=== PATIENT | female | born 1930 | race Caucasian/White ===

== ENCOUNTER 2017-03-04 10:29 | Inpatient (IN) | payer OTHER, BC ==
[~2017-03-04] VITALS: Ht 162.6 cm; Wt 59.9 kg
[2017-03-04] VITALS (8 sets, daily range): BP systolic 120–221; BP diastolic 47–96
--- NOTE | ~2017-03-04 | H ---
[facility] [place] [address] HISTORY AND PHYSICAL Name: TERESO BELTRAN Room #: 351-P [facility] IN M.R.#: [id number] Admission: 03/04/17 Attend Phys: Tyson Payne MD Discharge: Date of : [birth year] Report #: [id number] THIS REPORT FOR: //name// CC: Tyson Payne DATE OF SERVICE: 03/04/2017 CHIEF COMPLAINT: Left leg weakness. HISTORY OF PRESENT ILLNESS: The patient is an 86-year-old female sent to the Emergency Room with left leg weakness. She has a long-standing history of hypertension, diffuse peripheral vascular disease due to atherosclerosis and a prior stroke, who woke this morning with left leg weakness. She got up to go to the bathroom and felt her left leg does buckle underneath her and she was unable to move her left leg. Her grandson was present, was able to prevent her from full-blown fall to the floor. She presented to the ER with elevated blood pressures of 200/80 and weakness of the left leg. She received IV hydralazine and underwent a CT scan of the brain. By the time she returned, she had normal movement and sensation back in the left leg, according to the staff. These symptoms started about 4 a.m. and she presented around 10:30. PAST MEDICAL HISTORY: Cerebrovascular accident with left hemiparesis and mild dysarthria approximately 3 years ago, hypertension, peripheral artery disease. She has had an aortic graft placement in 1972, I believe she has had fem-pop bypass, carotid endarterectomy. She also has a history of CLL. PAST SURGICAL HISTORY: As above. FAMILY HISTORY: Noncontributory. SOCIAL HISTORY: She lives with family at home. No chronic alcohol or tobacco use. ALLERGIES: IODINE. MEDICATIONS: Felodipine 5 mg, Benicar 20 mg, atenolol 100 mg, Plavix 75 mg, Ambien 5 mg, Lipitor 40 mg, aspirin 81 mg. REVIEW OF SYSTEMS: She denies headache, chest pain, shortness of breath, abdominal pain, nausea, vomiting, diarrhea, constipation, dysuria, syncope. OBJECTIVE: VITAL SIGNS: Pulse 60, respirations 12, blood pressure 168/51, O2 sat 100% on room air. GENERAL: She is awake and alert, in no distress. HEAD AND NECK: Unremarkable. [address] [address] HISTORY AND PHYSICAL Name: TERESO BELTRAN Room #: 351-P [facility] IN [facility].#: [id number] Admission: 03/04/17 Attend Phys: Tyson Payne MD Discharge: Date of : [birth year] Report #: [id number] LUNGS: Clear. HEART: Regular. ABDOMEN: Soft, normoactive bowel sounds. EXTREMITIES: No edema. NEUROLOGIC: Cranial nerves intact. Speech is fluent. She recognizes me and knows her surroundings. Upper extremity strength intact, right leg strength intact. Left leg, she has some slight weakness with hip and knee flexion, but she has normal movement at all 3 joints, fine touch sensation is intact. ASSESSMENT: 1. Transient ischemic attack. 2. Cerebrovascular disease. 3. Atherosclerotic vascular disease. 4. Chronic lymphocytic leukemia. 5. Hypertensive urgency. PLAN: She is admitted to telemetry with adjustment of blood pressure medication. MRI is obtained to rule out an acute stroke, but with resolution of her symptoms, this may be more TIA related to elevated blood pressures. Medication adjustments will be made while we have her under monitoring. She is taking Plavix and aspirin, we will use those for now and add Lovenox for DVT prophylaxis. <ELECTRONICALLY SIGNED> By: Tyson Payne MD 03/05/17 0843 [id number] 1225 Tyson Payne MD /nt
--- NOTE | ~2017-03-04 | EKG ---
[address] [address] ELECTROCARDIOGRAM REPORT Name: ANDIAURORACHRIS SinghTERESO A Room #: 351-P ADM IN .R.#: [id number] Admission: 03/04/17 Attend Phys: Tyson Payne MD Discharge: Date of : [birth year] Report #: [id number] THIS REPORT FOR: //name// [facility] ED Test Date: 2017-03-04 Test Time: 10:51:28 Pat Name: TERESO BELTRAN Department: Room: [facility] Gender: F Clinical Services Director: ana : 1930 Requested By: Yessy Yanez Order Number: [id number] MD: Claude Steinberg Measurements Intervals Elida Rate: 55 P: -13 SC: 159 QRS: 38 QRSD: 83 T: 78 QT: 427 QTc: 409 Interpretive Statements Sinus rhythm Probable LVH with secondary repol abnrm Compared to ECG 05/08/2016 18:16:51 Atrial premature complex(es) no longer present Electronically Signed On 03-04-2017 21:10:24 [employer] by Claude Steinberg [email or web address] <ELECTRONICALLY SIGNED> By: Claude Steinberg MD 03/04/17 2110 105 1051 Claude Steinberg MD /EPI
--- NOTE | ~2017-03-04 | HC ---
[facility] [place] [address] CONSULTATION Name: TERESO BELTRAN Room #: 351-P [facility] IN ..#: [id number] Admission: 03/04/17 Attend Phys: Tyson Payne MD Discharge: 03/06/17 Date of : [birth year] Report #: [id number] THIS REPORT FOR: //name// CC: Tyson Payne DATE OF SERVICE: 03/05/2017 HISTORY OF PRESENT ILLNESS: The patient is an 86-year-old white female who was admitted with left-sided weakness primarily in the left lower extremity. She had problems with her left leg buckling. She was noted to be hypertensive upon admission, blood pressure 200/80. She notes a significant functional decline. CT of the brain was negative. MRI did not show any acute event. The patient has a prior history of a CVA back in 2014 lateral to the right mid ventricle and had a good recovery at that point in time. We are seeing her now in rehabilitation medicine consultation. PAST MEDICAL HISTORY: Includes the prior CVA in 2014. She has some left hemiparesis at that time. She did have some left lower extremity spasticity and was given some baclofen as well as Neurontin. She has a history of bilateral carotid stenosis, history of CLL, aortic stent, right common iliac stent, left renal artery stent. PAST SURGICAL HISTORY: As noted above. She had an aortic graft placed in 1972 and has had a fem-pop bypass and carotid endarterectomy. FAMILY HISTORY: Noncontributory. SOCIAL HISTORY: She lives in a house alone, tri-level. She has a walker on each level and has a stair rail that she uses. She continues to carry down her laundry and does her laundry in the basement. She has been ambulatory and be able to do all her own ADLs. She does have family that are closely involved. REVIEW OF SYSTEMS: Did not offer any current complaints of chest pain, shortness of breath or abdominal discomfort. Complains of the left-sided weakness and concern with give way of that left lower extremity. PHYSICAL EXAMINATION: GENERAL: She is a pleasant 86-year-old white female in no obvious distress. VITAL SIGNS: Last recorded temperature is 98.4, pulse 59, respirations 18, blood pressure 154/50. NEUROLOGIC: Facies appeared to be symmetric. EOMs are full. No obvious visual field neglect to confrontation. She is able to express herself quite well. She is right handed. Upper extremity, she has degenerative changes of both hands. Has some decreased coordination of that left upper extremity compared to the right with fine finger dexterity and [id number]. Strength is probably a grade 4/5 bilaterally. Lower extremity, she has some weakness of the left lower [address] [address] CONSULTATION Name: TERESO BELTRAN Room #: 351-P [facility] IN M.R.#: [id number] Admission: 03/04/17 Attend Phys: Tyson Payne MD Discharge: 03/06/17 Date of : 10/[birth year] Report #: [id number] extremity, hip and knee flexors 3+, knee extension is 3+, ankle dorsiflexion is 3+ to 4-. Right lower extremity strength is more of a grade 4 to 4-/5. Functionally, she does have deficits with transfers at a mod assist level. Sit to stand is mod assist. Gait was 4 steps mod assist front-wheeled walker. ASSESSMENT: An 86-year-old white female with the following problems: 1. Left-sided weakness/clinical evidence of a cerebrovascular accident. 2. Functional mobility and ADL deficits with decline from premorbid. 3. Prior history of an acute lacunar infarct lateral to the right ventricle back in 2014. 4. Hypertension with blood pressure 200/80 upon admission. 5. History of peripheral arterial disease with prior fem-pop and carotid endarterectomy. 6. Aortic graft replacement. 7. CLL. PLAN: The patient meets diagnostic criteria for an acute in-hospital inpatient rehabilitation stay. From a preadmission screening perspective: 1. Prior level of function is delineated above. 2. Expect level of improvement would be for her to again become modified independent with mobility and ADLs at the walker level as well as going up and down steps with a handrail. Would anticipate length of stay of probably at least 2 weeks, likely longer at this point in time. 3. Evaluation of the patient's risk for clinical complications. She does have the multiple medical comorbidities as noted above. She will need to be monitored with her hypertension, her significant peripheral vascular disease, her prior cerebrovascular accident. 4. Condition that caused the need for rehabilitation would be the left-sided weakness with clinical evidence of another cerebrovascular accident. 5. Treatments needed would include PT, OT and would have speech therapy evaluate. Would start out 1 hour per day each five days a week throughout the duration of the acute inpatient rehabilitation stay, but we may be able to wean off the speech therapy in favor of more PT and OT. 6. Anticipated discharge destination would be back home where she lives by herself. She will likely need more family assistance. 7. Anticipated post-discharge treatments would include home healthcare therapies. 8. The patient meets diagnostic criteria for an acute in-hospital inpatient rehabilitation stay. She meets medical necessity criteria and has the multiple medical comorbidities as noted above. She does have the tolerance for an acute rehab program and has appropriate discharge goals back to the home setting. <ELECTRONICALLY SIGNED> By: Tyson Johnson MD 03/10/17 1219 1157 1515 Tyson Johnson MD /[facility]
--- NOTE | ~2017-03-04 | D ---
[facility] [place] [address] DISCHARGE SUMMARY Name: TERESO BELTRAN Room #: 351-P [facility] IN ..#: [id number] Admission: 03/04/17 Attend Phys: Tyson Payne MD Discharge: 03/06/17 Date of : [birth year] Report #: [id number] THIS REPORT FOR: //name// CC: Tyson Payne FINAL DIAGNOSES: 1. Transient ischemic attack. 2. Hypertensive urgency. 3. Cerebrovascular disease. 4. Atherosclerosis. 5. Peripheral artery disease. 6. Chronic lymphocytic leukemia. HOSPITAL COURSE: The patient was admitted with acute left leg weakness. By the time, she had undergone CT and had hydralazine to lower her blood pressure, her symptoms were essentially resolved. She had an MRI, which showed no new stroke. She is still having some weakness and apraxic movements of her left leg and therefore, she was referred for rehab. Dr. Johnson consultation. Blood pressure was better with the addition of hydralazine and switching to Coreg. PHYSICAL EXAMINATION ON THE DAY OF DISCHARGE: GENERAL: She was awake and alert. Her exam was unremarkable including normal speech. VITAL SIGNS: Blood pressure was ranging 150/70-150/100. LUNGS: Clear. CARDIOVASCULAR: Regular heart sounds. ABDOMEN: Soft. Normal bowel sounds. EXTREMITIES: Showed no edema. NEUROLOGIC: She was showing normal strength 4/5 in the left leg. DISPOSITION: To be discharged to inpatient rehabilitation with diet and activity as tolerated, physical, occupational, and speech therapy, be followed by myself and Dr. Johnson. I signed her transfer medications and I will continue managing her blood pressure on acute rehab. <ELECTRONICALLY SIGNED> By: Tyson Payne MD 03/07/17 0904 1057 1555 Tyson Payne MD /nt
[~2017-03-04 10:29] MED LIST: AMBIEN 5 MG TABL5 M1 PO; AMLODIPINE BESY10 MG PO; ASPIRIN81 M2 PO; ATENOLOL 100MG100 MG PO; ATORVASTATIN CA40 MG PO; BENGAY GREASELE57 GM TOP; BISACODYL SUPP10 MG RECTAL; CLOPIDOGREL75 MG PO; COLACE100 MG PO; DIOVAN 80 MG TA80 M1 PO; FELODIPINE ER10 MG PO; FISH OIL 1,001000 M2 PO; GABAPENTIN 100100 MG PO; HYDRALAZINE 5050 MG PO; HYDRALAZINE IV PUSH; HYDROCODON-ACE1 EAC7 PO; LIORESAL 10 MG10 MG PO; MILK OF MA2400 MG/10 PO; MIRALAX17 GM PO; PAXIL10 MG; PRAVACHOL20 MG PO; SENNA8.6 MG PO; SERTRALINE HCL25 MG PO; TYLENOL325 MG PO; VITAMIN D2000 UNIT PO
[2017-03-04 10:55] LABS: HEMATOCRIT 37.4 % (37.0-47.0); HEMOGLOBIN 12.9 gm/dL (12.0-15.0); MCH 32.4 pg (26.0-34.0); MCHC 34.4 g/dL (28.0-37.0); MCV 94.2 fL (80.0-100.0); RBC 3.98 mil/uL (4.20-5.00); RDW 12.4 % (10.5-14.5); WBC 36.8 thou/uL (4.0-11.0)
[2017-03-04 10:58] LABS: MANUAL DIFF YES
[2017-03-04 11:00] LABS: PLATELET COUNT 179 thou/uL (150-400)
[2017-03-04 11:05] LABS: CALCIUM 9.4 mg/dL (8.5-10.1); POTASSIUM 3.9 mmol/L (3.5-5.1)
[2017-03-04] MEDS ORDERED: FELODIPINE 5 MG5 M1 PO (11:14)
[2017-03-04] MEDS ORDERED: BENICAR20 MG PO (11:14)
[2017-03-04 11:59] LABS: ABSOLUTE NEUTROPHILS 2.6 thou/uL (1.4-8.2); PLATELET ESTIMATE NORMAL; TOTAL CELL COUNT 100
[2017-03-05 07:22] VITALS: BP 164/56
[2017-03-05 11:16] VITALS: BP 154/50
[2017-03-05 16:02] VITALS: BP 183/61
[2017-03-05 20:00] VITALS: BP 160/47
[2017-03-06 08:07] VITALS: BP 148/112
[2017-03-06] MEDS ORDERED: CARVEDILOL12.5 MG PO (10:52)
[2017-03-06] MEDS ORDERED: ENOXAPARIN30 MG/0.1 SUBQ (10:52)
[2017-03-06] MEDS ORDERED: HYDRALAZINE 10M10 MG PO (10:52)
[2017-03-06] MEDS ORDERED: MIRALAX17 GM PO (10:53)
[2017-03-06] MEDS ORDERED: BENICAR20 MG PO (10:53)
[2017-03-06] MEDS ORDERED: ACETAMINOPHEN325 M1 PO (10:53)
[2017-03-06 11:29] VITALS: BP 147/50
[2017-03-06 11:39] VITALS: BP 147/50
== END 2017-03-06 14:07 | DRG 69 ==
LOC: ER 10:29 → 3W 11:29 → EROBS 11:29 → 3W 12:29
PROVIDERS: Emergency Medicine
DX: G45.9 Transient cerebral ischemic attack, unspecified (principal); C91.10 Chronic lymphocytic leukemia of B-cell type not having achieved remission; I16.1 Hypertensive emergency; M10.9 Gout, unspecified; L40.9 Psoriasis, unspecified; I10 Essential (primary) hypertension; I73.9 Peripheral vascular disease, unspecified; I70.90 Unspecified atherosclerosis; Z90.49 Acquired absence of other specified parts of digestive tract; Z91.041 Radiographic dye allergy status; Z87.891 Personal history of nicotine dependence
CPT/HCPCS: 10879

== ENCOUNTER 2017-03-06 11:50 | Inpatient (IN) | payer OTHER, BC ==
[~2017-03-06] VITALS: Ht 165.1 cm; Wt 59.3 kg
--- NOTE | ~2017-03-06 | H ---
[facility] [place] [address] HISTORY AND PHYSICAL Name: TERESO BELTRAN Room #: 505-P ADM IN M.R.#: [id number] Admission: 03/06/17 Attend Phys: Tyson Johnson MD Discharge: Date of : [birth year] Report #: [id number] THIS REPORT FOR: //name// CC: Tyson Johnson DATE OF SERVICE: 03/06/2017 HISTORY AND PHYSICAL AND POSTADMISSION PHYSICIAN EVALUATION HISTORY OF PRESENT ILLNESS: The patient is an 86-year-old white female originally admitted with left-sided weakness primarily the left lower extremity. She had problems with left knee buckling. She was noted to be hypertensive upon admission, blood pressure 200/80. She noted a significant functional decline. CT of the brain was negative and MRI did not show any acute event. The patient has a prior history of a CVA, dating back to 2014, lateral to the right mid ventricle and had a good recovery at that point in time. With her significant functional decline with the left-sided weakness, she has now been admitted for acute in-hospital inpatient rehabilitation. PAST MEDICAL HISTORY: Includes the prior CVA in 2014. She had some left hemiparesis at that time. She also had some left lower extremity spasticity and was given some baclofen as well as some Neurontin. She has history of bilateral carotid stenosis, CLL, aortic stent, right common iliac stent, and left renal artery stent. PAST SURGICAL HISTORY: Includes aortic graft placed in 1972 and she had a fem-pop bypass and carotid endarterectomy. FAMILY HISTORY: Noncontributory. SOCIAL HISTORY: Lives in a house alone, tri-level. She has a walker on each level and has a stair rail that she uses. She continued to carry down her laundry as her laundry is in the basement. She had been ambulatory and was able to do all her own ADLs. She has family that is closely involved. REVIEW OF SYSTEMS: Did not offer any current complaints of chest pain, shortness of breath, or abdominal discomfort. She has the left-sided weakness and continues to have some concern regarding giveway. PHYSICAL EXAMINATION: GENERAL: An 86-year-old white female in no obvious distress. VITAL SIGNS: Temperature 97.4, pulse 67, respirations 18, blood pressure 148/57. The patient is alert. HEENT: Appeared to be benign. NEUROLOGIC: Cranial nerves are grossly intact. No obvious visual field neglect [address] [address] HISTORY AND PHYSICAL Name: TERESO BELTRAN Room #: 505-P [facility] IN [facility]#: [id number] Admission: 03/06/17 Attend Phys: Tyson Johnson MD Discharge: Date of : [birth year] Report #: [id number] to confrontation. She can express herself quite well. She is right handed. CHEST: Sounded clear to auscultation. CARDIOVASCULAR: Regular rate and rhythm. ABDOMEN: Bowel sounds are positive, nontender. GENITOURINARY AND RECTAL: Deferred. EXTREMITIES: She has some decreased coordination of the left upper extremity compared to the right with fine finger dexterity with [id number]. Strength is grade 4/5 bilaterally. Lower extremities: She has some weakness of the left lower extremity, hip and knee flexors are still 3+, knee extension is 3+, ankle dorsiflexion is 3+ to 4-. Right lower extremity is a grade 4- to 4/5. She is needing assistance with functional mobility skills with transfers at a mod assist. Gait is min assist 150 feet, when last up with therapy. Lower body dressing is being further assessed. ASSESSMENT: 1. Left-sided weakness with clinical evidence of cerebrovascular accident. 2. Functional mobility and activities of daily living deficits with decline from premorbid. 3. Prior history of an acute lacunar infarct lateral to the right mid ventricle back in 2014. 4. Hypertension with elevated blood pressure upon admission. 5. History of peripheral arterial disease with prior fem-pop and carotid endarterectomy. 6. Aortic graft replacement. 7. Chronic lymphocytic leukemia. PLAN: The patient is admitted for acute in-hospital inpatient rehabilitation. From a postadmission physician evaluation perspective, there are no relevant changes since the preadmission screening. Please see the above review of prior and current medical and functional conditions and comorbidities. Please see the patient's previous and current functional status. As far as risk of complications, the patient has multiple medical comorbidities as noted above. The initial plan of care involves the interdisciplinary acute inpatient rehabilitation program with the goal of maximizing the patient's functional independence, so that she can hopefully return back to her prior living situation. Measurable functional goals would be for her to improve with her overall functional abilities so that she can achieve independence at a walker level. She used a walker at each level and has a stair rail at home. Prognosis is reasonably good with estimated length of stay probably at least 10 days to 2 weeks pending progress. Potential barriers would include her multiple medical comorbidities and decreased functional status. <ELECTRONICALLY SIGNED> By: Tyson Johnson MD 03/10/17 1219 0935 1030 Tyson Johnson MD /[facility]
--- NOTE | ~2017-03-06 | PLAN ---
[facility] [place] [address] REHAB UNIT PLAN OF CARE Name: TERESO BELTRAN Room #: 505-P [facility] IN ..#: [id number] Admission: 03/06/17 Attend Phys: Tyson Johnson MD Discharge: Date of : [birth year] Report #: [id number] THIS REPORT FOR: //name// CC: Tyson Johnson DATE OF SERVICE: 03/08/2017 PROGRESS NOTE/OVERALL PLAN OF CARE The patient was seen earlier. She was in no distress. Last recorded temperature 36.9, pulse 57, respirations 18, blood pressure 136/50. She has been using SCDs. She was noted to have refused her midnight Hydralazine and Ambien was given. She has been working in therapies with transfers, min assist. Gait min assist 200 feet with a front-wheeled walker. She has gone up and down 4 steps min assist. Occupational therapy is contact guard for lower body dressing. In speech therapy, she does have mild comprehensive deficits. She is on a regular diet with thin liquids. ASSESSMENT: 1. Left-sided weakness with clinical evidence of a cerebrovascular accident. 2. Functional mobility and ADL deficits with decline from premorbid. 3. Prior history of an acute lacunar infarct lateral to the right mid ventricle back in 2014. 4. Hypertension with elevated blood pressure upon admission. 5. History of peripheral arterial disease with prior fem-pop and carotid endarterectomy. 6. Aortic graft replacement. 7. Chronic lymphocytic leukemia. PLAN: The overall plan of care is based on the preadmission screen, post-admission physician evaluation and information garnered from therapy assessments. 1. Estimated length of stay is probably at least 10 days to 2 weeks. 2. Medical prognosis is reasonably good. 3. Anticipated interventions include the interdisciplinary acute inpatient rehabilitation program with the goal of maximizing her functional independence so she can return back to the home setting. The interdisciplinary rehabilitation team is involved. 4. Anticipated functional outcomes would be for the patient to achieve independence at a walker level as she was using before. Goal is for her to become independent with her mobility and ADLs as well as improvement in cognition. 5. Discharge destination would be back to her own house, which is a tri-level house. Premorbidly, she had been going up and down stairs with the stair rail. 6. Expected therapy by discipline includes PT, OT and speech, 1 hour per day [address] [address] REHAB UNIT PLAN OF CARE Name: TERESO BELTRAN [place] Room #: 505-P [facility] IN [facility]#: [id number] Admission: 03/06/17 Attend Phys: Tyson Johnson MD Discharge: Date of : [birth year] Report #: [id number] for a total of 3 hours per day, 5 days a week throughout the duration of the acute inpatient rehabilitation stay. <ELECTRONICALLY SIGNED> By: Tyson Johnson MD 03/10/17 1219 0929 1134 Tyson Johnson MD /[facility]
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
[~2017-03-06 11:50] MED LIST changes: +ACETAMINOPHEN325 M1 PO; +BENICAR20 MG PO; +CARVEDILOL12.5 MG PO; +ENOXAPARIN30 MG/0.1 SUBQ; +FELODIPINE 5 MG5 M1 PO; +HYDRALAZINE 10M10 MG PO
[2017-03-06 14:25] VITALS: BP 136/80
[2017-03-06 20:35] VITALS: BP 148/57
[2017-03-07 06:30] LABS: HEMATOCRIT 32.7 % (37.0-47.0); HEMOGLOBIN 11.3 gm/dL (12.0-15.0); MCH 32.6 pg (26.0-34.0); MCHC 34.6 g/dL (28.0-37.0); MCV 94.1 fL (80.0-100.0); RBC 3.48 mil/uL (4.20-5.00); RDW 12.6 % (10.5-14.5); WBC 21.6 thou/uL (4.0-11.0)
[2017-03-07 06:42] LABS: CALCIUM 8.8 mg/dL (8.5-10.1); CREATININE 0.9 mg/dL (0.6-1.0); POTASSIUM 4.1 mmol/L (3.5-5.1)
[2017-03-07 11:13] VITALS: BP 155/49
[2017-03-07 20:34] VITALS: BP 144/44
[2017-03-07 23:37] VITALS: BP 136/50
[2017-03-08 07:54] VITALS: BP 142/52
[2017-03-08 20:09] VITALS: BP 147/60
[2017-03-09 08:45] VITALS: BP 135/43
[2017-03-09 20:00] VITALS: BP 138/49
[2017-03-10 08:15] VITALS: BP 149/66
[2017-03-10 20:12] VITALS: BP 153/53
[2017-03-11 08:22] VITALS: BP 144/71
[2017-03-11 19:35] VITALS: BP 117/56
[2017-03-12] MEDS ORDERED: CARVEDILOL12.5 MG PO (12:00)
[2017-03-12] MEDS ORDERED: HYDRALAZINE 10M10 MG PO (12:00)
[2017-03-12] MEDS ORDERED: FELODIPINE 5 MG5 M1 PO (12:00)
[2017-03-12] MEDS ORDERED: BENICAR20 MG PO (12:01)
[2017-03-12 20:00] VITALS: BP 141/54
[2017-03-13 08:00] VITALS: BP 173/50
[2017-03-13] MEDS ORDERED: HYDRALAZINE 10M10 MG PO (10:22)
[2017-03-13] MEDS ORDERED: NORVASC10 MG PO (10:22)
[2017-03-13 11:46] VITALS: BP 152/68
== END 2017-03-13 13:05 | DRG 65 ==
PROVIDERS: Physical Medicine & Rehabilitation
DX: I63.9 Cerebral infarction, unspecified (principal); C91.10 Chronic lymphocytic leukemia of B-cell type not having achieved remission; I10 Essential (primary) hypertension; I73.9 Peripheral vascular disease, unspecified; G31.84 Mild cognitive impairment of uncertain or unknown etiology; Z60.2 Problems related to living alone; Z28.21 Immunization not carried out because of patient refusal; Z95.2 Presence of prosthetic heart valve
CPT/HCPCS: 10112

== ENCOUNTER 2018-03-06 14:46 | Emergency (ER) | payer OTHER, BC ==
[~2018-03-06] VITALS: Ht 162.6 cm; Wt 63.5 kg
--- NOTE | ~2018-03-06 | EKG ---
[address] [address] ELECTROCARDIOGRAM REPORT Name: TERESO BELTRAN Room #: [facility]#: [id number] Admission: 03/06/18 Attend Phys: Discharge: 03/06/18 Date of : [birth year] Report #: [id number] THIS REPORT FOR: //name// [facility] ED Test Date: 2018-03-06 Test Time: 15:38:00 Pat Name: TERESO BELTRAN Department: Room: Gender: F Unitizer: SANDRA : 1930 Requested By: Anival Silverman Order Number: [id number] MD: Santhosh Lam Measurements Intervals [place] Rate: 63 P: 67 [place]: 189 QRS: 41 QRSD: 82 T: 63 QT: 416 QTc: 426 Interpretive Statements Sinus rhythm Atrial premature complex Compared to ECG 03/04/2017 10:51:28 Atrial premature complex(es) now present Electronically Signed On 03-07-2018 10:58:09 LOOP TENDER by Santhosh Lam [email or web address] <ELECTRONICALLY SIGNED> By: Santhosh Lam MD, [facility] 03/07/18 1058 1538 [id number] Santhosh Lam MD, [facility] /EPI
[~2018-03-06 14:46] MED LIST changes: +NORVASC10 MG PO
[2018-03-06 15:24] LABS: HEMATOCRIT 36.2 % (37.0-47.0); HEMOGLOBIN 12.4 gm/dL (12.0-15.0); MCH 32.2 pg (26.0-34.0); MCHC 34.2 g/dL (28.0-37.0); MCV 94.1 fL (80.0-100.0); PLATELET COUNT 161 thou/uL (150-400); RBC 3.85 mil/uL (4.20-5.00)
[2018-03-06 15:33] LABS: CALCIUM 9.5 mg/dL (8.5-10.1); CREATININE 1.3 mg/dL (0.6-1.0); POTASSIUM 4.3 mmol/L (3.5-5.1)
[2018-03-06 15:45] LABS: URINE BILIRUBIN NEGATIVE (Negative); URINE BLOOD NEGATIVE (Negative); URINE CLARITY CLEAR; URINE COLOR YELLOW; URINE GLUCOSE-RANDOM* NEGATIVE (Negative); URINE KETONES NEGATIVE (Negative); URINE LEUKOCYTES-REFLEX NEGATIVE (Negative); URINE NITRITE-REFLEX NEGATIVE (Negative); URINE PROTEIN (DIPSTICK) 2+ (Negative); URINE SPECIFIC GRAVITY >= 1.030 (1.005-1.035); URINE UROBILINOGEN 0.2 E.U./dl (0.2-1.0)
[2018-03-06 15:54] LABS: BACTERIA-REFLEX None Seen /HPF (None Seen); CRYSTALS None Seen /LPF (None Seen); SQUAMOUS 4-10 Moderate /LPF (0-3); URINE RBC None Seen /HPF (0-2); URINE WBC-REFLEX 0-5 Rare /HPF (0-5); YEAST-REFLEX Present (None Seen)
[2018-03-06 15:55] LABS: HYALINE CASTS 4-10 Moderate /LPF (None Seen)
[2018-03-06 15:59] LABS: ALBUMIN 3.8 g/dL (3.4-5.0); DIRECT BILIRUBIN 0.2 mg/dL (<0.1-0.3); SGOT 22 U/L (15-37); SGPT 27 U/L (30-65); TOTAL BILIRUBIN 0.8 mg/dL (<0.1-1.0); TOTAL PROTEIN 7.5 g/dL (6.4-8.2); TROPONIN-I <0.06 ng/mL (<0.06)
[2018-03-06 17:36] VITALS: BP 173/70
== END 2018-03-06 17:39 | disposition home or self-care (01) ==
LOC: ER 14:46
PROVIDERS: Emergency Medicine
DX: E87.1 Hypo-osmolality and hyponatremia (principal); I10 Essential (primary) hypertension; M19.90 Unspecified osteoarthritis, unspecified site; L40.9 Psoriasis, unspecified; Z87.891 Personal history of nicotine dependence; Z91.041 Radiographic dye allergy status; Z90.49 Acquired absence of other specified parts of digestive tract; Z98.890 Other specified postprocedural states; Z86.73 Personal history of transient ischemic attack (TIA), and cerebral infarction without residual deficits

== ENCOUNTER → 2019-01-26 | Outpatient (CLI) | payer OTHER, BC | LOC: RAD 11:28 | DX: M25.552 Pain in left hip (principal); M47.816 Spondylosis without myelopathy or radiculopathy, lumbar region ==